=== PATIENT | female | born 1945 | race Caucasian/White ===

== ENCOUNTER 2020-04-12 00:24 | Emergency (ER) | payer OTHER, MEDICAID ==
[~2020-04-12] VITALS: Ht 152.4 cm; Wt 49.9 kg
[2020-04-12 00:30] VITALS: BP_SYST 190
[2020-04-12] MEDS ORDERED: DIPH-TET-PERTUS Vaccine 0.5 ML VIAL (ADACEL) I.M. ONE (01:15)
[2020-04-12] MEDS ORDERED: MORPHINE 2 MG/ML INJ. SYRINGE IM ONE (01:15)
[2020-04-12 02:33] VITALS: BP_SYST 155
== END 2020-04-12 02:23 | disposition home or self-care (01) ==
LOC: SED 00:24
DX: S00.03XA Contusion of scalp, initial encounter (principal); Z88.0 Allergy status to penicillin; Z88.6 Allergy status to analgesic agent; W22.01XA Walked into wall, initial encounter; Y93.89 Activity, other specified; Y92.89 Other specified places as the place of occurrence of the external cause; Y99.8 Other external cause status
CPT/HCPCS: 70450; 76376; 90471; 90715; 96372; 99284; J2270